=== PATIENT | male | born 1975 | race Caucasian/White ===

== ENCOUNTER 2016-11-17 05:49 | Emergency (ER) | payer OTHER ==
[~2016-11-17] VITALS: Ht 188 cm; Wt 77.1 kg
[2016-11-17 05:50] VITALS: BP 143/75
--- NOTE | 2016-11-17 05:57 | NUR ---
PATIENT TO ER BED 3
--- NOTE | 2016-11-17 06:11 | NUR ---
41/M PRESENT TO ER C/O RT FLANK PAIN RADIATING TO HIS LOWER BACK STARTED THIS MORNING, WITH NAUSEA. AAOx4, PERRLA, BREATHING EVEN AND EFFORTLESS. ERMD NOTIFIED OF PATIENT STATUS.
--- NOTE | 2016-11-17 06:30 | NUR ---
Patient being evaluated by physician at bedside.
[2016-11-17 07:53] VITALS: BP 140/79
--- NOTE | 2016-11-17 07:53 | NUR ---
Patient discharged with v/s stable. Written and verbal after care instructions given and explained. Patient alert, oriented and verbalized understanding of instructions. Ambulatory with steady gait. All questions addressed prior to discharge. ID band removed. Patient advised to follow up with PMD. Rx of IBUPROFEN 600MG given. Patient educated on indication of medication including possible reaction and side effects. Opportunity to ask questions provided and answered.
== END 2016-11-17 07:53 | disposition home or self-care (01) ==
LOC: MED 05:49
DX: N20.0 Calculus of kidney (principal); F41.9 Anxiety disorder, unspecified